=== PATIENT | female | born 2000 | race Caucasian/White ===

== ENCOUNTER 2022-09-19 23:22 | Emergency (ER) | payer MEDICAID, SELFPAY ==
[2022-09-19 23:23] VITALS: BP 110/73; PULSE 62; RESP 18; TEMP 36.2; O2SAT 100; BMI 18.1
--- NOTE | 2022-09-20 00:18 | EDS_ITS ---
HPI HPI - Female History of Present Illness Chief Complaint: Flank Pain PFSH PFSH Medical History no medical history Home Medications nitrofurantoin macrocrystal 100 mg capsule 100 mg PO BID 7 days #14 caps 09/20/22 [Rx Last Taken Unknown] Allergy/AdvReac Type Severity Reaction Status Date / Time No Known Allergies Allergy Verified 09/19/22 23:25 Social History Smoking Status: Current every day smoker tobacco type: cigarettes EXAM Physical Exam Const Vital Signs: 09/19/22 23:23 Temperature 97.2 F L Temperature Source Temporal Pulse Rate 62 Respiratory Rate 18 Blood Pressure 110/73 Blood Pressure Mean 85 Pulse Ox 100 Oxygen Delivery Method Room Air MDM MDM MDM Narrative Medical decision making narrative: HISTORY OF PRESENT ILLNESS: 21-year-old female presents with bilateral flank pain and urinary frequency since yesterday. She states she has left flank pain that radiates to the groin. Denies nausea vomiting. She is sexually active with 1 partner. Denies vaginal bleeding or discharge. Denies constipation or diarrhea. No history abdominal surgeries. No recent travel, surgery or recent antibiotic use REVIEW OF SYSTEMS: Pertinent positives: Urinary frequency, flank pain Pertinent negatives: Focal loss of sensation, fever nausea or vomiting PHYSICAL EXAM: Nursing triage notes reviewed, Vital signs reviewed Constitutional: please see mdm HENT: MMM Eyes: Pupils equal round and reactive to light, Extraocular muscles intact Neck: No stridor, no JVD, full neck ROM Lungs: Clear to auscultation, No wheezing or rales. No increased work of breathing, no conversational dyspnea, no accessory muscle use, no nasal flaring. No respiratory distress noted Heart: Regular rate and rhythm, No murmurs, No rubs and No gallops, 2+ distal pulses (radial, femoral, posterior tibial) in all extremities Abdomen: Soft, there is no tenderness, rigidity, rebound or guarding, no obvious peritoneal signs, no palpable pulsatile abdominal masses, no auscultated abdominal bruit : Left CVAT Extremities: No edema Neuro: No focal neurological deficits, cranial nerves II through XII intact, 5/5 strength in all extremities. Intact sensation to light touch in all extremities, 2+ reflexes bilateral patella tendons. Normal gait. No ataxia. Skin: No rash or lesions noted MEDICAL DECISION MAKING: Chief Complaint: Urinary frequency External records reviewed: No recent ED visits or hospitalizations noted ALL IMAGES (IF OBTAINED) HAVE BEEN PERSONALLY REVIEWED AND INTERPRETED BY MYSELF. UA with evidence of inflammation and infection MDM Narrative: The patient was hemodynamically stable, afebrile, nontoxic-appearing I considered the following differential diagnosis: UTI, , pyelonephritis, nephrolithiasis Patient's exam was not consistent with nephrolithiasis and if she does have a kidney stone is likely small and passed on its own. I did decide to obtain a urinalysis to rule out . was negative. UA with remarkable for evidence of infection I suspect patient has pyelonephritis we will give nitrofurantoin for antimicrobial prophylaxis. The patient and/or family, caregivers express understanding. The patient and/or family, caregivers agrees with the plan. Shared decision making: I will have a discussion with the patient and or visitors regarding risk/benjamin efits of further testing or admission. They will be made aware of of the risk/benefits inherent in this decision they will be given the opportunity to voice understanding. Total critical care time today provided was at least 0 minutes. This excludes separately billable procedures. Critical care time (if documented) is secondary to the patient having high probability of clinically significant/life threatening deterioration in the patient's condition which required my urgent intervention. Lab Data Attestation: I reviewed the patient's lab results. Labs: Laboratory Results - last 24 hr 09/20/22 01:10 Urine Color Yellow Urine Clarity Clear Urine pH 7.0 Ur Specific [place] 1.010 Urine Protein 15 H Urine Glucose (UA) Normal Urine Ketones Negative Urine Occult Blood 250 H Urine Nitrite Negative Urine Bilirubin Negative Urine Urobilinogen Normal Ur Leukocyte Esterase 500 H Urine RBC 0 SEEN Urine WBC 0 SEEN Ur Squamous Epith Cells 0 SEEN Urine Bacteria 0 SEEN Urine Mucus 0 SEEN Urine Test Negative Discharge Plan Triage Chief Complaint: Flank Pain ED Provider: Geoff Tobias Dx/Rx/DC Orders Clinical Impression: Pyelonephritis Instructions: ED Pyelonephritis, Female (Adult) Prescriptions: New nitrofurantoin macrocrystal 100 mg capsule 100 mg PO BID 7 Days Qty: 14 0RF Rx Instructions: must administer with a meal/food Primary Care Provider: Song Bryant Referrals: Care Physician,No Primary [Non-Staff] - Activity Restrictions/Additional Instructions: Thank you for trusting us with your care today! Please take Tylenol (2 pills, 650 mg), ibuprofen (2 pills, 400 mg) every 6 hours as needed for pain and fever control. Please take antibiotics as prescribed. A urine culture has been sent. Expect a call if the antibiotic that you have been given does not cover the potential bacteria that grows in your urine culture. Please return to the emergency department if your symptoms change or worsen. Please follow with your primary care physician for further outpatient evaluation and management. Disposition Disposition: Home, Self Care
[2022-09-20 01:14] LABS: Bacteria 0 SEEN /hpf (None Seen); Mucous, Urine 0 SEEN /hpf (<or=2+); Red Blood Cells-Urine 0 SEEN /hpf (0-5); Squamous Epithelial Cells - UA 0 SEEN /hpf (5-10); White Blood Cells 0 SEEN /hpf (0-5)
[2022-09-20 01:16] LABS: Glucose, Dipstick Normal (Normal); Ketone-Dipstick Negative (Negative); Leukocyte Esterase-Dipstick 500 /ul (Negative); Nitrite-Dipstick Negative (Negative); Occult Blood-Urine 250 /ul (Negative); Protein-Dipstick 15 mg/dl (Negative); Urine Bilirubin Dipstick Negative (Negative); Urine Urobilinogen Normal (Normal)
[2022-09-20 01:24] LABS: Color, Urine Yellow (Yellow); Urine Clarity Clear (Clear)
[2022-09-20 01:26] LABS: Internal QC Validated? YES +Cl - CLEAR BKGD
[2022-09-20 01:27] LABS: Pregnancy, Urine Negative Negative
[2022-09-20 01:45] VITALS: O2SAT 98
[2022-09-20] MEDS: Nitrofurantoin Macrocrystals 100 MG Capsule PO (01:51)
== END 2022-09-20 01:55 | disposition home or self-care (01) ==
PROVIDERS: Emergency Provider Emergency Medicine; PCP Family Medicine; Visit Provider Emergency Medicine
DX: N12 Tubulo-interstitial nephritis, not specified as acute or chronic (principal); F17.210 Nicotine dependence, cigarettes, uncomplicated
CPT/HCPCS: 81001; 81025; 87077; 87086; 87088; 87186; 99283